=== PATIENT | female | born 1985 | race African-American/Black ===

== ENCOUNTER 2019-05-09 20:59 | Emergency (ER) | payer BC ==
[2019-05-09 21:04] VITALS: TEMP 98; BMI 31.6
[2019-05-09] MEDS ORDERED: SODIUM CHLORIDE 1,000 ML IV STA ×2 (21:04→23:10)
[2019-05-09] MEDS ORDERED: ONDANSETRON 4 MG/2 ML VIAL IVPUSH ONE (21:04)
--- NOTE | 2019-05-09 21:04 | PDOC ---
Rapid Medical Evaluation Time Seen by Provider: 05/09/19 21:01 Medical Evaluation: 05/09/19 21:01 I have performed a brief in-person evaluation of this patient. The patient presents with a chief complaint of: 10wks , unable to keep anything down, (+)vomiting, no abdominal pain, no vaginal bleeding. I have ordered the following: CBC, CMP, Beta HCG. Zofran The patient will proceed to the ED for further evaluation. Discharge Disposition - Diagnosis Vomiting affecting - Referrals - Patient Instructions - Post Discharge Activity
[2019-05-09 21:31] LABS: EOS % 2.1 % (0-4.5); HEMATOCRIT 38.2 % (32.4-45.2); HEMOGLOBIN 12.3 GM/dL (10.7-15.3); LYMPH % 30.7 % (8-40); MCH 25.2 pg (25.7-33.7); MCHC 32.3 g/dl (32.0-36.0); MEAN CELL VOLUME 78.1 fl (80-96); MEAN PLT VOLUME 7.6 fl (7.5-11.1); MONO % 7.8 % (3.8-10.2); NEUT % 58.4 % (42.8-82.8); PLATELET COUNT 391 K/MM3 (134-434); RBC 4.89 M/mm3 (3.60-5.2); RDW 16.3 % (11.6-15.6); WHITE BLOOD COUNT 9.5 K/mm3 (4.0-10.0)
--- NOTE | 2019-05-09 21:59 | PDOC ---
*Physical Exam - Vital Signs Last Vital Signs Temp Pulse Resp BP Pulse Ox 98.0 F 103 H 16 144/96 100 05/09/19 21:02 05/09/19 21:02 05/09/19 21:02 05/09/19 21:02 05/09/19 21:02 ED Treatment Course - LABORATORY CBC & Chemistry Diagram: 05/09/19 21:21 05/09/19 21:21 - ADDITIONAL ORDERS Additional order review: 05/09/19 21:21 RBC 4.89 MCV 78.1 L MCHC 32.3 RDW 16.3 H MPV 7.6 Neutrophils % 58.4 Lymphocytes % 30.7 Monocytes % 7.8 Eosinophils % 2.1 Basophils % 1.0 Medical Decision Making - Medical Decision Making 05/09/19 21:59 Patient seen by the advanced practice provider under my direct supervision. Ancillary testing reviewed as necessary. I agree with plan as outlined by the advanced practice provider. *DC/Admit/Observation/Transfer Diagnosis at time of Disposition: Vomiting affecting - Referrals - Patient Instructions - Post Discharge Activity
--- NOTE | 2019-05-09 22:03 | PDOC ---
History of Present Illness - General Chief Complaint: Nausea/Vomiting Stated Complaint: VOMITING Time Seen by Provider: 05/09/19 21:01 History Source: Patient - History of Present Illness Initial Comments: 05/09/19 21:58 34 year old femALE C/O NVD X 3 DAYS .PATIENT is 10 weeks confirmed IUP. denies abdominal pain, fever, urinary symptoms. patient reports that she is taking diclegis with no relief in symptoms 05/09/19 22:51 Past History - Past Medical History Allergies/Adverse Reactions: Allergies Allergy/AdvReac Type Severity Reaction Status Date / Time No Known Allergies Allergy Verified 05/09/19 21:04 Home Medications: Ambulatory Orders Metoclopramide HCl [Reglan] 10 mg PO BID PRN #10 tablet 05/10/19 COPD: No - Suicide/Smoking/Psychosocial Hx Smoking History: Unknown if ever smoked Have you smoked in the past 12 months: No Information on smoking cessation initiated: No Hx Alcohol Use: No Drug/Substance Use Hx: No Review of Systems - Review of Systems Able to Perform ROS?: Yes Is the patient limited Pakistani proficient: No Constitutional: No: Symptoms Reported, See HPI, Chills, Diaphoresis, Fever, Loss of Appetite, Malaise, Night Sweats, Weakness, Weight Stable, Unintentional Wgt. Loss, Unexplained wgt Loss, Other ABD/GI: Yes: Nausea, Vomiting, Abdominal cramping *Physical Exam - Vital Signs Last Vital Signs Temp Pulse Resp BP Pulse Ox 98.0 F 103 H 16 144/96 100 05/09/19 21:02 05/09/19 21:02 05/09/19 21:02 05/09/19 21:02 05/09/19 21:02 - Physical Exam General Appearance: Yes: Appropriately Dressed Respiratory/Chest: positive: Lungs Clear, Normal Breath Sounds Cardiovascular: positive: Regular Rhythm, Regular Rate Gastrointestinal/Abdominal: positive: Normal Bowel Sounds, Soft Extremity: positive: Normal Capillary Refill, Normal Inspection, Normal Range of Motion Integumentary: positive: Normal Color, Dry, Warm Neurologic: positive: Fully Oriented, Alert, Normal Mood/Affect ED Treatment Course - LABORATORY CBC & Chemistry Diagram: 05/09/19 21:21 05/09/19 21:21 - ADDITIONAL ORDERS Additional order review: 05/09/19 21:21 RBC 4.89 MCV 78.1 L MCHC 32.3 RDW 16.3 H MPV 7.6 Neutrophils % 58.4 Lymphocytes % 30.7 Monocytes % 7.8 Eosinophils % 2.1 Basophils % 1.0 Progress Note - Progress Note Progress Note: A: hyperemesis gravidum P: labs IVF zofran Medical Decision Making - Medical Decision Making 05/10/19 00:54 patient now reports some pelvic cramping. will send to US. patient with history of shortened cervix and labor. 05/10/19 01:57 US: There is a single live intrauterine gestation with measurements corresponding to 9 weeks and 4 days. heart rate is 159 bpm. Amniotic fluid is subjectively normal. Note made of a 2.1 cm uterine fibroid. Ovaries grossly normal bilaterally. 05/10/19 02:31 patient is now feeling better. will d/c home *DC/Admit/Observation/Transfer Diagnosis at time of Disposition: Vomiting affecting , Hyperemesis arising during - Discharge Dispostion Disposition: HOME - Prescriptions Prescriptions: Metoclopramide HCl [Reglan] 10 mg PO BID PRN #10 tablet PRN Reason: Nausea - Referrals - Patient Instructions Printed Discharge Instructions: DI for Vomiting -- Adult Additional Instructions: drink plenty of fluids take diclegis as prescribed, you may also reglan as prescribed. - Post Discharge Activity Forms/Work/School Notes: Back to Work
[2019-05-09] MEDS ORDERED: ONDANSETRON 4 MG/2 ML VIAL ONE (22:16)
[2019-05-09 22:29] LABS: ALBUMIN 3.6 g/dl (3.4-5.0); BILIRUBIN,TOTAL 0.2 mg/dL (0.2-1); BLOOD UREA NITROGEN 7.3 mg/dL (7-18); CALCIUM 9.6 mg/dL (8.5-10.1); CREATININE 0.7 mg/dL (0.55-1.3); MAGNESIUM 2.2 mg/dL (1.8-2.4); PHOSPHOROUS 4.4 mg/dL (2.5-4.9); POTASSIUM 3.8 mmol/L (3.5-5.1); TOT PROT 7.1 g/dl (6.4-8.2)
[2019-05-10] MEDS ORDERED: METOCLOPRAMIDE HCL INJECTION 10 MG/2 ML VIAL IVPB ONE (00:37)
[2019-05-10] MEDS ORDERED: METOCLOPRAMIDE HCL INJECTION 10 MG/2 ML VIAL ONE (01:14)
[2019-05-10 01:37] LABS: PH,URINE 6.5 (5.0-8.0); URINE APPEARANCE CLEAR; URINE BILIRUBIN NEGATIVE (NEGATIVE); URINE COLOR YELLOW; URINE GLUCOSE (UA) NEGATIVE (NEGATIVE); URINE KETONE 1+ (NEGATIVE); URINE LEUK ESTERASE NEGATIVE (NEGATIVE); URINE NITRITE NEGATIVE (NEGATIVE); URINE PROTEIN NEGATIVE (NEGATIVE); URINE UROBILINOGEN 0.2 mg/dL (0.2-1.0)
[2019-05-10 04:19] VITALS: BP 143/83; PULSE 88
== END 2019-05-10 02:12 | disposition home or self-care (01) ==
LOC: JER 20:59
PROC: 3E033GC Introduction of Other Therapeutic Substance into Peripheral Vein, Percutaneous Approach (ICD-10-PCS; principal; 2019-05-09)
PROC: 3E0337Z Introduction of Electrolytic and Water Balance Substance into Peripheral Vein, Percutaneous Approach (ICD-10-PCS; 2019-05-09)
DX: O26.891 Other specified pregnancy related conditions, first trimester (principal); Z3A.10 10 weeks gestation of pregnancy; R11.10 Vomiting, unspecified
CPT/HCPCS: 36415; 76817-TC; 80053; 81003; 83735; 84100; 84702; 85025; 99282-25; J7030